=== PATIENT | female | born 1970 | race Two or more races ===

== ENCOUNTER 2025-01-15 08:46 | Outpatient (CLI) | payer BC ==
[2025-01-15 09:48] LABS: Hematocrit 42.8 % (36.0-46.0); Hemoglobin 14.4 g/dL (12.2-16.2); Mean Corpuscular Hemoglobin 31.1 pg (28.0-32.0); Mean Corpuscular Volume 92.0 fL (80.0-100.0); Nucleated Red Blood Cells % 0.1 %
[2025-01-15 09:57] LABS: Urine Protein, UAD Negative (Negative)
[2025-01-15 10:22] LABS: Alanine Aminotransferase 21 U/L (7-40); Alkaline Phosphatase 75 U/L (46-116); Anion Gap 10 (5-15); BUN/Creatinine Ratio 18.8 (10.0-20.0); Blood Urea Nitrogen 15 mg/dL (9-23); Calcium 9.2 mg/dL (8.7-10.4); Carbon Dioxide 26 mmol/L (20-31); Chloride 107 mmol/L (98-107); Glucose 105 mg/dL (74-106); Potassium 4.1 mmol/L (3.5-5.1); Sodium 143 mmol/L (136-145); Total Protein 7.5 g/dL (5.7-8.2)
[2025-01-15 10:23] LABS: Albumin 4.5 g/dL (3.2-4.8); Bilirubin, Total 0.6 mg/dL (0.2-1.0); Cholesterol 191 mg/dL (< 200); HDL Cholesterol 44 mg/dL (40-59)
[2025-01-15 10:26] LABS: Triglycerides 255 mg/dL (< 150)
== END 2025-01-15 17:00 | disposition home or self-care (01) ==
LOC: LAB 08:46
PROVIDERS: ATTEND Student in an Organized Health Care Education/Training Program
DX: E55.9 Vitamin D deficiency, unspecified (principal); R73.9 Hyperglycemia, unspecified; R03.0 Elevated blood-pressure reading, without diagnosis of hypertension
CPT/HCPCS: 36415; 80053; 80061; 81001; 83036; 84443; 85025